=== PATIENT | female | born 1955 | race Caucasian/White ===

== ENCOUNTER 2024-04-16 06:12 | Day surgery (SDC) | payer MEDICARE, BC ==
[2024-04-16] MEDS ORDERED: Lidocaine 2% 100 MG/5 ML Syringe IVPUSH ONE (06:13)
[2024-04-16] MEDS ORDERED: Propofol 200 MG/20 ML SDV IV ONE (06:13)
[2024-04-16] MEDS ORDERED: Sodium Chloride 0.9% 10 ML Syringe FLUSH PRN (06:15)
[2024-04-16] MEDS: Lactated Ringers 1,000 ML IV SCH (07:14)
[2024-04-16] MEDS: Simethicone Drops 40 MG/0.6 ML 30 ML Bottle ONE (07:38)
[2024-04-16 09:01] VITALS: BP 157/79; PULSE 58
== END 2024-04-16 08:45 | disposition home or self-care (01) ==
LOC: FB.SDS 06:12
PROVIDERS: ATTEND Surgery
DX: Z12.11 Encounter for screening for malignant neoplasm of colon (principal); I10 Essential (primary) hypertension; E78.5 Hyperlipidemia, unspecified; E66.9 Obesity, unspecified; Z79.899 Other long term (current) drug therapy
CPT/HCPCS: 00812; A9270-GY; J2704; J7120